=== PATIENT | female | born 1980 | race Hispanic/Latino ===

== ENCOUNTER 2024-08-21 13:27 | Emergency (ER) | payer SELFPAY ==
[2024-08-21] MEDS ORDERED: ACETAMINOPHEN 500 MG TAB ONE (14:00)
--- NOTE | 2024-08-21 14:29 | RAD REPORT ---
EXAM: CT brain without contrast HISTORY: +LOC COMPARISON: None TECHNIQUE: Multiple contiguous axial images were obtained and a CT of the brain without contrast. Sag ittal and coronal reformats were performed. One or more of the following dose reduction techniques were used: Automated exposure control, adjust ment of the mA and/or kV according to patient size, and/or iterative reconstruction. FINDINGS: No evidence of hydrocephalus, intracranial hemorrhage, or extra-axial fluid collection. The brain is normal in morphology. No evidence of midline shift or areas of brain edema. The calvarium is intact. The visualized paranasal sinuses and mastoid air cells are essentially clear . IMPRESSION: No evidence of acute intracranial abnormality.
--- NOTE | 2024-08-21 14:30 | RAD REPORT ---
EXAMINATION: XR RIGHT FOREARM CLINICAL INDICATION: . PAIN TECHNIQUE:Two view radiograph of the right forearm were obtained. COMPARISON: No prior exam. FINDINGS: No bone or joint abnormality detected.
--- NOTE | 2024-08-21 14:30 | RAD REPORT ---
EXAMINATION: CT MAXILLOFACIAL WITHOUT CONTRAST CLINICAL INDICATION: Swelling;Pain TECHNIQUE: Axial images were obtained through the facial bones and orbits without intravenous contras t. Sagittal and coronal reconstructions were created from the data. One or more of the following dose reduction techniques were used: Automated exposure control, adjustment of the mA and/or kV accor ding to patient size, and/or iterative reconstruction. Unless otherwise specified, incidental findings do not require dedicated imaging follow-up. COMPARISON: No prior exam. FINDINGS: SOFT TISSUE: No significant abnormalities. BONES: No evidence of fracture, dislocation, or aggressive osseous lesions. No lesion of the visuali zed skull base or calvarium. ORBITS: The globes are intact. No intraorbital hemorrhage or mass. SINUSES: The visualized paranasal sinuses and mastoid air cells are essentially clear. IMPRESSION: No acute or concerning abnormalities.
--- NOTE | 2024-08-21 14:32 | RAD REPORT ---
EXAMINATION: XR LEFT KNEE CLINICAL INDICATION: Pain;Swelling TECHNIQUE: Multiple projections of the left knee were obtained. COMPARISON: No prior exam. FINDINGS: No bone or joint abnormality seen.
--- NOTE | 2024-08-21 14:32 | RAD REPORT ---
EXAMINATION: XR RIGHT ELBOW CLINICAL INDICATION: Female, 43 years old. Pain;Swelling RIGHT TECHNIQUE: Multiple views of the right elbow were obtained. COMPARISON: No prior exam. FINDINGS: No evidence of fracture or dislocation. Normal alignment. No joint effusion. Soft tissues a re unremarkable.
--- NOTE | 2024-08-21 14:37 | ER ---
Nurse's Notes [facility] Name: Becka Guadalupe Age: 43 yrs Sex: Female : 1980 Arrival Date: 08/21/2024 Time: 13:27 Bed 19 Private MD: Diagnosis: Other sprain of right elbow;Contusion of left knee;Face contusion Presentation: 08/21 13:40 Chief complaint: Patient states: Tripped and fell over her own feet at approximately cm10 11AM. Pt states that she fell on her left knee first then landed on her right arm. PT has pain to left knee and to right arm. Pt states hitting her face with possible LOC. Coronavirus screen: Client denies travel out of the [place] in the last 14 days. Ebola Screen: Patient denies travel to an Ebola-affected area in the 21 days before illness onset. No symptoms or risks identified at this time. Initial Sepsis Screen: Does the patient meet any 2 criteria? No. Patient's initial sepsis screen is negative. Does the patient have a suspected source of infection? No. Patient's initial sepsis screen is negative. Risk Assessment: Do you want to hurt yourself or someone else? Patient reports no desire to harm self or others. Onset of symptoms was August 21, 2024. 13:40 Method Of Arrival: Ambulatory cm10 13:40 Acuity: RICHARD 4 cm10 Triage Assessment: 13:43 General: Appears in no apparent distress. comfortable, Behavior is calm, cooperative. cm10 Pain: Complains of pain in right cheek, dorsal aspect of right forearm, right elbow and left knee. Neuro: No deficits noted. Level of Consciousness is awake, alert, obeys commands, Oriented to person, place, time, situation, Appropriate for age. Respiratory: No deficits noted. Airway is patent Respiratory effort is even, unlabored, Respiratory pattern is regular, symmetrical. Musculoskeletal: Reports pain in dorsal aspect of right forearm, right elbow, palmar aspect of right forearm and left knee. Historical: - Allergies: 13:42 No Known Allergies; cm10 - Home Meds: 13:42 None [Active]; cm10 - PMHx: 13:42 None; cm10 - PSHx: 13:42 Ligation of fallopian tube; cm10 - Immunization history:: Adult Immunizations up to date. - Infectious Disease History:: Denies. - Social history:: Smoking status: Patient denies any tobacco usage or history of. Screenin:15 [facility] ED Fall Risk Assessment (Adult) History of falling in the last 3 months, me1 including since admission Yes- single mechanical fall (1 pt) Confusion or Disorientation No (0 pts) Intoxicated or Sedated No (0 pts) Impaired Gait No (0 pts) Mobility Assist Device Used No (0 pt) Altered Elimination No (0 pt) Score/Fall Risk Level 0 - 2 = Low Risk Maintained a safe environment, Provided non-skid footwear, Hourly rounding (assess needs \T\ fall precautionary measures) done. Abuse screen: Denies threats or abuse. Nutritional screening: No deficits noted. Tuberculosis screening: No symptoms or risk factors identified. Assessment: 14:15 General: Appears uncomfortable, well groomed, well developed, well nourished, Behavior me1 is calm, cooperative, appropriate for age, Reports Tripped and fell over her own feet at approximately 11AM. Pt states that she fell on her left knee first then landed on her right arm. PT has pain to left knee and to right arm. Pt states hitting her face with possible LOC. Pain: Complains of pain in palmar aspect of right forearm and left leg and right arm and face and left knee and right elbow and dorsal aspect of right forearm and right cheek Pain does not radiate. Pain currently is 7 out of 10 on a pain scale. Quality of pain is described as aching, Pain began suddenly, Is continuous. Neuro: Level of Consciousness is awake, alert, obeys commands, Oriented to person, place, time, situation, Appropriate for age. Cardiovascular: Patient's skin is warm and dry. Respiratory: Airway is patent Respiratory effort is even, unlabored, Respiratory pattern is regular, symmetrical. GI: No signs and/or symptoms were reported involving the gastrointestinal system. : No signs and/or symptoms were reported regarding the genitourinary system. EENT: No signs and/or symptoms were reported regarding the EENT system. Derm: Skin is intact, is healthy with good turgor, Skin is pink, warm \T\ dry. Musculoskeletal: Reports pain in palmar aspect of right forearm and left leg and right arm and face and left knee and right elbow and dorsal aspect of right forearm and right cheek. Injury Description: Tripped and fell over her own feet at approximately 11AM. Pt states that she fell on her left knee first then landed on her right arm. PT has pain to left knee and to right arm. Pt states hitting her face with possible LOC. Vital Signs: 13:40 BP 120 / 89; Pulse 78; Resp 18; Temp 98(O); Pulse Ox 99% on R/A; Weight 86.18 kg; Pain cm10 9/10; 13:40 Pain Scale: Adult cm10 ED Course: 13:31 Patient arrived in ED. mg5 13:32 Sully Cook F[facility] 7 13:32 Dc Dickey MD is Attending Physician. 7 13:42 Triage completed. cm10 13:44 Arm band placed on left wrist. Patient placed in waiting room. cm10 13:57 Eden Hutchinson, RN is Primary Nurse. me1 14:15 Patient has correct armband on for positive identification. Bed in low position. Call me1 light in reach. Side rails up X 1. Provided Education on: POC. Verbalized understanding. . Client placed on continuous cardiac and pulse oximetry monitoring. NIBP monitoring applied. Pulse ox on. NIBP on. 14:15 No provider procedures requiring assistance completed. Patient did not have IV access me1 during this emergency room visit. 14:18 XRAY Knee LEFT 3 view In Process Unspecified. EDMS 14:18 XRAY Forearm RIGHT In Process Unspecified. EDMS 14:18 XRAY Elbow RIGHT 3 view In Process Unspecified. EDMS 14:23 CT Facial Bones W/O Con In Process Unspecified. EDMS 14:24 CT Head Brain wo Cont In Process Unspecified. EDMS Administered Medications: 14:26 Drug: Acetaminophen PO 1000 mg PO once Route: PO; me1 14:42 Follow up: Response: No adverse reaction; Pain is decreased me1 Medication: 14:15 VIS not applicable for this client. me1 Outcome: 14:36 Discharge ordered by . [facility] 15:08 Patient left the ED. rs5 Signatures: Dispatcher [employer] EDMS Sully Cook FNP [employer] STORE MANAGER 7 Hubert Saucedo RN RN rs5 Pavithra Sotomayor RN RN 10 Eden Hutchinson RN RN me1 Demetra James mg5 Corrections: (The following items were deleted from the chart) 13:43 13:42 PSHx: None; cm10 cm10 14:39 13:40 Chief complaint: Patient states: Tripped and fell over her own feet at ar1 approximately 11AM. Pt states that she fell on her left knee first then landed on her right arm. PT has pain to left knee and to right arm. Pt states hitting her face with possible LOC. cm10
--- NOTE | 2024-08-21 14:37 | EDPHYS ---
Physician Documentation [facility] Name: Becka Guadalupe Age: 43 yrs Sex: Female : 1980 Arrival Date: 08/21/2024 Time: 13:27 Bed 19 Private MD: ED Physician Dc Dickey HPI: 08/21 13:42 This 43 yrs old Female presents to ER via Ambulatory with complaints of Fall jh7 Injury. 13:42 43-year-old female with no past medical history presents to the ER post fall occurring jh7 today. The patient reports that she tripped at work, landed on her left knee, and then fell on her right arm and right face. Reports that she did lose consciousness and woke up on the ground. Complains of facial pain, right arm pain, and left knee pain.. Historical: - Allergies: 13:42 No Known Allergies; cm10 - Home Meds: 13:42 None [Active]; cm10 - PMHx: 13:42 None; cm10 - PSHx: 13:42 Ligation of fallopian tube; cm10 - Immunization history:: Adult Immunizations up to date. - Infectious Disease History:: Denies. - Social history:: Smoking status: Patient denies any tobacco usage or history of. ROS: 13:42 Constitutional: Per HPI jh7 Exam: 13:42 Constitutional: This is a well developed, well nourished patient who is awake, alert, jh7 and in no acute distress. Eyes: Pupils equal round and reactive to light, extra-ocular motions intact. Lids and lashes normal. Conjunctiva and sclera are non-icteric and not injected. Cornea within normal limits. Periorbital areas with no swelling, redness, or edema. Neck: Trachea midline, no thyromegaly or masses palpated, and no cervical lymphadenopathy. Supple, full range of motion without nuchal rigidity, or vertebral point tenderness. No Meningismus. Cardiovascular: Regular rate and rhythm with a normal S1 and S2. No gallops, murmurs, or rubs. Normal PMI, no JVD. No pulse deficits. Respiratory: Lungs have equal breath sounds bilaterally, clear to auscultation and percussion. No rales, rhonchi or wheezes noted. No increased work of breathing, no retractions or nasal flaring. Abdomen/GI: Soft, non-tender, with normal bowel sounds. No distension or tympany. No guarding or rebound. No evidence of tenderness throughout. Back: No spinal tenderness. No costovertebral tenderness. Full range of motion. Skin: Warm, dry with normal turgor. Normal color with no rashes, no lesions, and no evidence of cellulitis. Neuro: Awake and alert, GCS 15, oriented to person, place, time, and situation. Cranial nerves II-XII grossly intact. Motor strength 5/5 in all extremities. Sensory grossly intact. Cerebellar exam normal. Normal gait. 13:42 Head/face: Noted is contusion, of the right cheek, 13:42 Musculoskeletal/extremity: Extremities: noted in the left knee: contusion, noted in the right elbow: contusion, decreased ROM, pain, ROM: limited active range of motion due to pain, in the right arm and left knee, Vital Signs: 13:40 BP 120 / 89; Pulse 78; Resp 18; Temp 98(O); Pulse Ox 99% on R/A; Weight 86.18 kg; Pain cm10 9/10; 13:40 Pain Scale: Adult cm10 MDM: 13:32 Medical Screening Exam initiated [facility] 14:38 Differential diagnosis: closed head injury, contusion, fracture, sprain, strain. Data [facility] reviewed: vital signs, nurses notes, radiologic studies, CT scan, plain films. I considered the following discharge prescriptions or medication management in the emergency department Medications were administered in the Emergency Department. See MAR. Independent interpretation of the following test(s) in the Emergency Department X-Ray: My interpretation is no acute fractures. CT Scan: My interpretation is no acute findings. Counseling: I had a detailed discussion with the patient and/or guardian regarding the historical points, exam findings, and any diagnostic results supporting the discharge/admit diagnosis, to return to the emergency department if symptoms worsen or persist or if there are any questions or concerns that arise at home. Response to treatment: the patient's symptoms have mildly improved after treatment. 08/21 13:46 Order name: CT Facial Bones W/O Con; Complete Time: 14:35 [facility] 08/21 13:46 Order name: CT Head Brain wo Cont; Complete Time: 14:35 [facility] 08/21 13:46 Order name: XRAY Knee LEFT 3 view; Complete Time: 14:35 7 08/21 13:46 Order name: XRAY Forearm RIGHT; Complete Time: 14:35 7 08/21 13:46 Order name: XRAY Elbow RIGHT 3 view; Complete Time: 14:35 7 08/21 14:35 Order name: Sling [facility] 08/21 14:35 Order name: Adalid wrap-joint [facility] Administered Medications: 14:26 Drug: Acetaminophen PO 1000 mg PO once Route: PO; me1 14:42 Follow up: Response: No adverse reaction; Pain is decreased me Disposition Summary: 08/21/24 14:36 Discharge Ordered Notes: Location: Home [facility] Problem: new [facility] Symptoms: have improved [facility] Condition: Stable [facility] Diagnosis - Other sprain of right elbow [facility] - Contusion of left knee [facility] - Face contusion [facility] Followup: [facility] - With: Private Physician - When: 2 - 3 days - Reason: Recheck today's complaints Discharge Instructions: - Discharge Summary Sheet [facility] - Contusion [facility] - How to Use a Sling [facility] - Elbow Sprain [facility] Forms: - Medication Reconciliation Form [facility] - Patient Portal Instructions [facility] - Leadership Thank You Letter [facility] Prescriptions: - Naprosyn 500 mg Oral Tablet - take 1 tablet ORAL route 2 times per day take with food; 30 tablet; Refills: 0, [facility] Product Selection Permitted Signatures: Dispatcher [employer] EDSully Morales, LANDSCAPE LABORER LANDSCAPE LABORER [facility] Pavithra Sotomayor RN RN 10 Eden Hutchinson RN RN me1 Corrections: (The following items were deleted from the chart) 13:43 13:42 PSHx: None; cm10 cm10 13:47 13:47 Elbow Right 3 View+[email or web address] ordered. EDMS EDMS
[2024-08-21 18:00] VITALS: BP 120/89; TEMP 98; O2SAT 99
== END 2024-08-21 15:08 | disposition home or self-care (01) ==
LOC: ER 13:27
DX: S53.491A Other sprain of right elbow, initial encounter (principal); S80.02XA Contusion of left knee, initial encounter; S00.83XA Contusion of other part of head, initial encounter; W01.0XXA Fall on same level from slipping, tripping and stumbling without subsequent striking against object, initial encounter
CPT/HCPCS: 70450; 70486; 76377; 99283